=== PATIENT | female | born 1985 | race African-American/Black ===

== ENCOUNTER 2016-09-21 09:49 | Emergency (ER) | payer SELFPAY ==
[~2016-09-21] VITALS: Ht 170.2 cm; Wt 88.5 kg
[~2016-09-21 09:49] MED LIST: DICY20TA30 PO; FAMO20TA5 PO; HYDR-971 PO
[2016-09-21] MEDS ORDERED: ONDANSETRON PF 4 MG/2 ML VIAL. IV ONE (11:15)
[2016-09-21] MEDS ORDERED: FENTANYL PF 100 MCG/2 ML VIAL. IV PRN (11:15)
[2016-09-21 11:18] LABS: NEG OBC UR NEG; POS OBC UR POS
[2016-09-21 11:22] LABS: BILIRUBIN,URINE NEGATIVE (NEG); GLUCOSE,URINE NEGATIVE (NEG); NITRITE,URINE NEGATIVE (NEG); PROTEIN,URINE NEGATIVE (NEG-TRACE); UROBILINOGEN,URINE 0.2 mg/dL (0.2 mg/dL)
[2016-09-21] MEDS ORDERED: IV NORMAL SALINE 1000ML BAG 1,000 ML IV SCH (11:30)
--- NOTE | 2016-09-21 11:34 | RAD ---
Right upper quadrant abdominal ultrasound, 09/21/2016: History: Right upper quadrant pain, vomiting The gallbladder is is not well distended. Its grubbs are at the upper limits of normal in thickness. No gallstones are seen. The gallbladder wall is not thickened. No bile duct dilatation is evident. The visualized portions of the liver, pancreas and right kidney are unremarkable. IMPRESSION: No significant abnormality is detected.
[2016-09-21 11:47] LABS: BACTERIA,URINE FEW /HPF (0-FEW); RBC,URINE RARE /HPF (0-2); SQUAMOUS EPITHELIAL CELL,UR FEW /LPF
[2016-09-21 12:03] LABS: BASO % 0 % (0-3); EOS % 1 % (0-3); HEMATOCRIT 38.3 % (36.0-47.0); HEMOGLOBIN 12.5 g/dL (12.0-15.5); LYMPH # 2.2 x10^3/uL (1.0-4.8); LYMPH % 31 % (24-48); MEAN CORPUSCULAR HEMOGLOBIN 26 pg (25-35); MEAN CORPUSCULAR HGB CONC 33 g/dL (31-37); MEAN CORPUSCULAR VOLUME 78 fL (79-100); MONO % 6 % (0-9); NEUT % 61 % (31-73); PLATELET COUNT 335 x10^3/uL (140-400); RED BLOOD COUNT 4.89 x10^6/uL (3.50-5.40); RED CELL DISTRIBUTION WIDTH 15.1 % (11.5-14.5); WHITE BLOOD COUNT 6.9 x10^3/uL (4.0-11.0)
[2016-09-21 12:06] LABS: CALCIUM 9.6 mg/dL (8.5-10.1); GFR 79.3; POTASSIUM 4.1 mmol/L (3.5-5.1)
[2016-09-21 12:13] LABS: ALBUMIN 3.8 g/dL (3.4-5.0); ALBUMIN/GLOBULIN RATIO 0.8 (1.0-1.7); TOTAL BILIRUBIN 0.3 mg/dL (0.2-1.0); TOTAL PROTEIN 8.6 g/dL (6.4-8.2)
--- NOTE | 2016-09-21 12:16 | PHYS DOC ---
Past Medical History Past Medical History: Anemia Additional Past Medical Histor: ovarian cyst Past Surgical History: Other Additional Past Surgical Histo: R)inguinal hernia. Smoking: Cigar Alcohol Use: Rarely Drug Use: Marijuana Adult General Chief Complaint Chief Complaint: ABDOMINAL PAIN HPI HPI Patient is a 31 year old female who presents with ongoing right upper quadrant pain. She states that it is been worse over the past 3 weeks with frequent nausea and vomiting. She has loose stools without blood. She's had urinary frequency without dysuria or hematuria. She denies any fevers at home. The patient has been seen here previously for similar complaints. She states that she was told that there was something wrong with her gallbladder, but it did not need to be removed emergently. She was instructed to follow-up as an outpatient with a general surgeon. She is waiting for her insurance to be effective after starting a new job in order to be seen by general surgeon. She does not have a PCP. Review of Systems Review of Systems Constitutional: Denies fever or chills. [] Respiratory: Denies cough or shortness of breath. [] Cardiovascular: Denies chest pain, palpitations or edema. [] GI: Denies bloody stools. Reports right upper quadrant abdominal pain, nausea, vomiting, and diarrhea. : Denies dysuria, hematuria. Reports urinary frequency. Musculoskeletal: Denies back pain or joint pain. [] Integument: Denies rash or skin lesions. [] Neurologic: Denies headache, focal weakness or sensory changes. [] All systems reviewed and negative unless otherwise stated in the HPI. Current Medications Current Medications Current Medications Medications (Trade) Dose Ordered Sig/[facility] Start Time Stop Time Status Last Admin Dose Admin Fentanyl Citrate 50 mcg 50 mcg PRN Q15MIN PRN 09/21/16 11:15 09/21/16 13:14 DC 09/21/16 12:18 50 MCG Ondansetron HCl (Zofran) 4 mg 1X ONCE 09/21/16 11:15 09/21/16 11:16 DC 09/21/16 12:16 4 MG Sodium Chloride (Iv Sodium Chloride 0.9% 1000ml Bag) 1,000 ml @ 1,000 mls/hr Q1H 09/21/16 11:30 09/21/16 12:29 DC 09/21/16 12:15 1,000 MLS/HR Allergies Allergies Allergies Coded Allergies Type Severity Reaction Last Updated Verified No Known Medication Allergies Allergy Unknown 06/13/16 Yes lactose Adverse Reaction Intermediate diarrhea-reports lactose intolerance. Yes Physical Exam Physical Exam Constitutional: Well developed, well nourished, no acute distress, non-toxic appearance. [] HENT: Normocephalic, atraumatic, bilateral external ears normal, oropharynx moist, no oral exudates, nose normal. [] Eyes: PERRLA, EOMI, conjunctiva normal, no discharge. [] Neck: Normal range of motion, no tenderness, supple, no stridor. [] Cardiovascular:Heart rate regular rhythm, no murmur [] Lungs & Thorax: Bilateral breath sounds clear to auscultation [] Abdomen: Bowel sounds normal, soft, right upper quadrant tenderness, no masses, no pulsatile masses. [] Skin: Warm, dry, no erythema, no rash. [] Back: No tenderness, no CVA tenderness. [] Extremities: No tenderness, no cyanosis, no clubbing, ROM intact, no edema. [] Neurologic: Alert and oriented X 3, normal motor function, normal sensory function, no focal deficits noted. [] Psychologic: Affect normal, judgement normal, mood normal. [] Current Patient Data Vital Signs Vital Signs Date Time Temp Pulse Resp B/P Pulse Ox O2 Delivery O2 Flow Rate FiO2 09/21/16 13:11 70 16 137/85 99 09/21/16 12:18 Room Air 09/21/16 11:14 98.7 98.7 Lab Values Laboratory Tests Test 09/21/16 10:37 09/21/16 11:41 Urine Collection Type Void Urine Color Yellow Urine Clarity Clear Urine pH 6.0 Urine Specific Grubbs 1.020 Urine Protein Negativemg/dL (NEG-TRACE) Urine Glucose (UA) Negativemg/dL (NEG) Urine Ketones (Stick) Tracemg/dL (NEG) Urine Blood Negative (NEG) Urine Nitrite Negative (NEG) Urine Bilirubin Negative (NEG) Urine Urobilinogen Dipstick 0.2mg/dL (0.2 mg/dL) Urine Leukocyte Esterase Negative (NEG) Urine RBC Rare/HPF (0-2) Urine WBC 1-4/HPF (0-4) Urine Squamous Epithelial Cells Few/LPF Urine Bacteria Few/HPF (0-FEW) Urine Mucus Slight/LPF Urine Test Negative (NEG) White Blood Count 6.9x10^3/uL (4.0-11.0) Red Blood Count 4.89x10^6/uL (3.50-5.40) Hemoglobin 12.5g/dL (12.0-15.5) Hematocrit 38.3% (36.0-47.0) Mean Corpuscular Volume 78fL (79-100) L Mean Corpuscular Hemoglobin 26pg (25-35) Mean Corpuscular Hemoglobin Concent 33g/dL (31-37) Red Cell Distribution Width 15.1% (11.5-14.5) H Platelet Count 335x10^3/uL (140-400) Neutrophils (%) (Auto) 61% (31-73) Lymphocytes (%) (Auto) 31% (24-48) Monocytes (%) (Auto) 6% (0-9) Eosinophils (%) (Auto) 1% (0-3) Basophils (%) (Auto) 0% (0-3) Neutrophils # (Auto) 4.2x10^3uL (1.8-7.7) Lymphocytes # (Auto) 2.2x10^3/uL (1.0-4.8) Monocytes # (Auto) 0.4x10^3/uL (0.0-1.1) Eosinophils # (Auto) 0.1x10^3/uL (0.0-0.7) Basophils # (Auto) 0.0x10^3/uL (0.0-0.2) Sodium Level 139mmol/L (136-145) Potassium Level 4.1mmol/L (3.5-5.1) Chloride Level 104mmol/L (98-107) Carbon Dioxide Level 26mmol/L (21-32) Anion Gap 9 (6-14) Blood Urea Nitrogen 11mg/dL (7-20) Creatinine 1.0mg/dL (0.6-1.0) Estimated GFR (Cockcroft-Gault) 79.3 BUN/Creatinine Ratio 11 (6-20) Glucose Level 93mg/dL (70-99) Calcium Level 9.6mg/dL (8.5-10.1) Total Bilirubin 0.3mg/dL (0.2-1.0) Aspartate Amino Transferase (AST) 16U/L (15-37) Alanine Aminotransferase (ALT) 20U/L (14-59) Alkaline Phosphatase 54U/L (46-116) Total Protein 8.6g/dL (6.4-8.2) H Albumin 3.8g/dL (3.4-5.0) Albumin/Globulin Ratio 0.8 (1.0-1.7) L Lipase 124U/L (73-393) Laboratory Tests 09/21/16 11:41 Laboratory Tests 09/21/16 11:41 EKG EKG [] Radiology/Procedures Radiology/Procedures REASON: ruq pain, n/v PROCEDURE: ABDOMEN LTD Right upper quadrant abdominal ultrasound, 09/21/2016: History: Right upper quadrant pain, vomiting The gallbladder is is not well distended. Its grubbs are at the upper limits of normal in thickness. No gallstones are seen. The gallbladder wall is not thickened. No bile duct dilatation is evident. The visualized portions of the liver, pancreas and right kidney are unremarkable. IMPRESSION: No significant abnormality is detected. Course & Med Decision Making Course & Med Decision Making Pertinent Labs and Imaging studies reviewed. (See chart for details) Patient presents with ongoing right upper quadrant pain with nausea, vomiting, and diarrhea. On exam, her abdomen is soft and nonsurgical with tenderness in the right upper quadrant. Ultrasound does not show signs of cholecystitis, gallstones, or ductal dilation. There are no significant laboratory abnormalities. The patient's pain and nausea improved with fentanyl and Zofran. I discussed the results with patient. She is again instructed to follow up with general surgery, as there are no indications for emergent cholecystectomy at this time. She is discharged home with prescription for Zofran and Manor. Return precautions were discussed. She verbalizes understanding and agrees with plan. Dragon Disclaimer Dragon Disclaimer This electronic medical record was generated, in whole or in part, using a voice recognition dictation system. Departure Departure Impression: Primary Impression: Abdominal pain Additional Impression: Biliary colic Disposition: 01 HOME, SELF-CARE Condition: IMPROVED Referrals: MATHEW HAYES MD Patient Instructions: Abdominal Pain, [id number], Biliary Colic Additional Instructions: Your labs and ultrasound did not show any concerning findings today. Please take the prescribed medications as directed. Do not drive or operate heavy machinery while taking pain medication. Please follow-up with the general surgeon listed below regarding your gallbladder. Return to the emergency department if you have severe pain, continued vomiting, fever, or other new or concerning symptoms. Scripts Hydrocodone/Apap 5-325 (Manor 5-325 Tablet)1 Each Tablet1 Tab PO PRN Q6HRS PRN PAIN #20 TAB Prov:REY LLAMAS 09/21/16 Ondansetron (Zofran Odt)4 Mg Tab.rapdis1 Tab SL Q8HRS #10 TAB Prov:REY LLAMAS 09/21/16 Problem Qualifiers Primary Impression: Abdominal pain Abdominal location: right upper quadrant Qualified Code: R10.11 - Right upper quadrant pain REY LLAMAS Sep 21, 2016 12:16
[2016-09-21] MEDS ORDERED: ONDA4TAB10 SL (12:54)
[2016-09-21] MEDS ORDERED: HYDR-971 PO (12:54)
[2016-09-21 13:11] VITALS: BP 137/85
== END 2016-09-21 13:14 | disposition home or self-care (01) ==
LOC: ER 09:49
DX: K80.50 Calculus of bile duct without cholangitis or cholecystitis without obstruction (principal); F12.10 Cannabis abuse, uncomplicated; F17.210 Nicotine dependence, cigarettes, uncomplicated; Z98.890 Other specified postprocedural states; Z91.011 Allergy to milk products
CPT/HCPCS: 36415; 76705; 80053; 81001; 81025; 83690; 85027; 96361; 96374; 96375; 99285; J2405; J3010; J7030

== ENCOUNTER → 2016-11-01 | Outpatient (CLI) | payer OTHER ==
[~2016-11-01] MED LIST changes: +ONDA4TAB10 SL; +SINCALIDE 2.1 MCG in IV NORMAL SALINE 50ML 30 ML IV ONE
--- NOTE | 2016-11-01 11:08 | RAD ---
EXAM: Nuclear hepatobiliary scan with ejection fraction. HISTORY: Abdominal pain/nausea. TECHNIQUE: Serial static images are obtained of the liver and biliary system in a frontal projection following IV administration of 5.5 mCi of technetium-99m Choletec. After filling of the gallbladder, 2.1 mcg of sincalide were infused over 30 minutes and dynamic imaging continued over this period. The gallbladder ejection fraction was calculated. FINDINGS: There is prompt hepatic clearance of tracer from the blood pool. There is homogeneous distribution throughout the liver. There is normal filling of the gallbladder and normal emptying into the biliary system and small bowel. The gallbladder ejection fraction is 94.3% (normal >35%). IMPRESSION: 1. Normal gallbladder ejection fraction.
== END | disposition home or self-care (01) ==
LOC: NM 08:10
PROVIDERS: ATTEND Surgery
DX: R10.11 Right upper quadrant pain (principal)
CPT/HCPCS: 78226; 96374; 96375; A9537; J2805

== ENCOUNTER 2016-11-22 06:41 | Day surgery (SDC) | payer OTHER ==
[~2016-11-22] VITALS: Ht 170.2 cm; Wt 104.8 kg
[~2016-11-22 06:41] MED LIST changes: +CEFAZOLIN 2GM PREMIX 50 ML IV PRN; -SINCALIDE 2.1 MCG in IV NORMAL SALINE 50ML 30 ML IV ONE
[2016-11-22] MEDS ORDERED: IV RINGERS,LACTATED 1000ML 1,000 ML IV SCH (07:00)
[2016-11-22] MEDS ORDERED: PROCHLORPERAZINE 10 MG/2 ML VIAL. IV PRN (07:00)
[2016-11-22] MEDS ORDERED: FENTANYL PF 100 MCG/2 ML VIAL. IV PRN (07:00)
[2016-11-22] MEDS ORDERED: LIDOCAINE 1% 1 ML SYRINGE. ID PRN (07:00)
[2016-11-22] MEDS ORDERED: MORPHINE SULFATE 2 MG/ML DISP.SYRIN. IV PRN (07:00)
[2016-11-22] MEDS ORDERED: ONDANSETRON PF 4 MG/2 ML VIAL. IV PRN (07:00)
[2016-11-22] MEDS ORDERED: HYDROMORPHONE 2 MG/ML VIAL. IV PRN (07:00)
[2016-11-22] MEDS ORDERED: FERR-26 PO (07:05)
[2016-11-22] MEDS ORDERED: NORG1TAB34 PO (07:07)
[2016-11-22] MEDS ORDERED: MULT1TAB52 PO (07:07)
[2016-11-22] MEDS ORDERED: SURGICEL HEMOSTAT 4X8 EACH. ONE (07:14)
[2016-11-22] MEDS ORDERED: IOHEXOL 300 MG/ML 50 ML VIAL. ONE (07:14)
[2016-11-22] MEDS ORDERED: BUPIVACAINE-EPI 0.25%-1:200000 MPF 30 ML VIAL. ONE (07:14)
[2016-11-22 07:27] LABS: NEG OBC UR NEG; POS OBC UR POS
[2016-11-22] MEDS ORDERED: LIDOCAINE 2% 100 MG/5 ML DISP.SYRIN. ONE (07:33)
[2016-11-22] MEDS ORDERED: PROPOFOL 20 ML IV ONE (07:33)
[2016-11-22] MEDS ORDERED: ROCURONIUM 50 MG/5 ML VIAL. ONE (07:33)
[2016-11-22] MEDS ORDERED: ONDANSETRON PF 4 MG/2 ML VIAL. ONE (07:33)
[2016-11-22] MEDS ORDERED: FENTANYL PF 100 MCG/2 ML VIAL. ONE ×4 (07:33→10:32)
[2016-11-22] MEDS ORDERED: DEXAMETHASONE SOD PHOS 20 MG/5 ML VIAL. ONE (07:33)
[2016-11-22] MEDS ORDERED: MIDAZOLAM HCL/PF 2 MG/2 ML VIAL. ONE (07:33)
[2016-11-22] MEDS ORDERED: SUCCINYLCHOLINE 200 MG/10 ML VIAL. ONE (08:14)
[2016-11-22] MEDS ORDERED: OXYC-323 PO (08:21)
[2016-11-22] MEDS ORDERED: ONDA4TAB7 PO (08:21)
[2016-11-22] MEDS ORDERED: BUPIVAC MPF-EPI 0.5%-1:200000 30 ML VIAL. ONE (08:22)
[2016-11-22] MEDS ORDERED: ACETAMINOPHEN INTRAVENOUS 100 ML IV ONE ×2 (08:41→09:00)
[2016-11-22] MEDS ORDERED: GLYCOPYRROLATE 1 MG/5 ML VIAL. ONE (09:00)
[2016-11-22] MEDS ORDERED: KETOROLAC 60 MG/2 ML INJ FOR OR. ONE (09:00)
[2016-11-22] MEDS ORDERED: NEOSTIGMINE METHYLSULFATE 5 MG/5 ML SYRINGE. ONE (09:00)
--- NOTE | 2016-11-22 09:05 | RAD ---
EXAM: Intraoperative cholangiogram. HISTORY: Cholecystectomy. COMPARISON: 11/01/2016. FINDINGS: 2 fluoroscopic images of the right upper quadrant are obtained. The images demonstrate contrast opacification of the downstream biliary tree and proximal duodenum. There is no filling defect to suggest a retained stone. No strictures seen. The total fluoroscopy time is 12 seconds. IMPRESSION: Intraoperative cholangiogram without evidence of a retained stone or stricture.
[2016-11-22] MEDS: FENTANYL PF 100 MCG/2 ML VIAL. IV PRN ×3 (09:37→10:35)
[2016-11-22] MEDS ORDERED: OXYCODONE/APAP 5/325 TABLET. PO ONE ×2 (09:45)
--- NOTE | 2016-11-22 09:51 | PDOC ---
BRIEF OPERATIVE NOTE Pre-Op Diagnosis biliary dyskinesia Post-Op Diagnosis same Procedure Performed lap jaylyn, ioc Surgeon dennis dowell Anesthesia Type: General Blood Loss 20 IV Fluid 800 Specimens Obtained gb Complications 0 GAGAN DOWELL MD Nov 22, 2016 09:51
[2016-11-22 11:02] VITALS: BP 123/64
--- NOTE | 2016-11-22 12:20 | OP ---
DATE OF SURGERY: 11/22/2016 PREOPERATIVE DIAGNOSIS: Biliary dyskinesia. POSTOPERATIVE DIAGNOSIS: Biliary dyskinesia. PROCEDURE: Laparoscopic cholecystectomy with intraoperative cholangiogram. SURGEON: Courtney Dowell M.D. ANESTHESIA: General. ESTIMATED BLOOD LOSS: 20 mL. INTRAVENOUS FLUIDS: 800 mL. INDICATIONS: The patient is a very pleasant 31-year-old female with symptoms consistent of biliary colic. Ultrasound was negative for gallstones. FINDINGS: Intraoperative cholangiogram is normal. PROCEDURE IN DETAIL: After informed consent was obtained, the patient was taken to the operating room and placed in supine position. After adequate induction of general anesthesia, she was prepped and draped in usual sterile fashion. An umbilical skin incision was made with a scalpel, subcutaneous tissues with a hemostat. [facility] was used to grab the fascia and lift it anteriorly. Veress was used to gain access to the peritoneal cavity. Low opening pressures confirmed intraperitoneal placement of Veress. Pneumoperitoneum to 15 mmHg was established followed by placement of 5 mm port. A 5 mm 30 degree lens was inserted, which revealed good port placement. No evidence of entry trauma. She was placed head up, rotated towards her left. Three additional ports were placed under direct vision, one was a 12 mm epigastric port and two were 5 mm right lateral ports. The fundus of the gallbladder was retracted over liver and slightly towards the right. Infundibulum was retracted towards the right and towards her toes to open triangle of Calot. At the level of the infundibulum, the leading peritoneal edge was scored with cautery medially and laterally and carried back towards the liver. [place] dissector was used to dissect out the triangle of Calot. At the completion of dissection, she had an anterior and posterior branch of the cystic artery leading directly to the gallbladder and then the cystic duct leading directly to the gallbladder. The gallbladder had dissected away from the cystic plate. The liver could be seen behind the gallbladder. There was no other extraneous tissue noted and the base of the gallbladder was free of undissected tissue. Two clips were placed on cystic artery, anterior branch and 2 clips were placed in cystic artery, posterior branch proximally and then a clip was placed on the cystic duct adjacent to the gallbladder. Ductotomy was made with scissors. Intraoperative cholangiogram showed free flow of contrast. The cystic duct, common bile duct, common hepatic, left and right hepatics, intrahepatic radicles, free flow of contrast into the duodenum with no filling defects noted. The catheter was removed and the cholangiogram was interpreted as normal. The cystic artery was transected sharply. Three clips were placed on cystic duct distal to the ductotomy. Ductotomy completed with scissors. The gallbladder was removed from bed of the liver with cautery and placed in laparoscopic bag and brought out through the epigastric incision. The right upper quadrant was irrigated. Irrigant returned clear. No bleeding or bile leakage noted. Fascial closure device was used to close the fascia at the epigastric incision using 0 Vicryl suture. Ports removed under direct vision. They were hemostatic. Pneumoperitoneum was desufflated. Skin incisions were closed with 4-0 Monocryl in subcuticular fashion. Sterile dressings were placed. She tolerated the procedure well. There were no apparent complications. She was then transferred in stable condition to the recovery room. COURTNEY DOWELL MD DR: MANISHA/devi JOB#: [id number] / [id number]
--- NOTE | 2016-11-23 14:03 | PATHOLOGY ---
PATHOLOGY REPORT * * * * * * * * FINAL DIAGNOSIS: Gallbladder, cholecystectomy: - Chronic cholecystitis, mild. (SKM:cailin; d/t: 11/23/2016) REPORT ELECTRONICALLY SIGNED BY: Sandy Clark M.D. DATE/TIME: 11/23/2016 14:02 * * * * * * * * GROSS PATHOLOGY: Received in formalin labeled "Carmen Thomas - gallbladder and contents," is a 7.9 x 2.8 x 2.5 cm, intact gallbladder with rios, well vascularized, and wrinkled serosal surfaces. Opening the gallbladder reveals dark green and velvety mucosa and an average wall thickness of 0.2 cm. Calculi are not present and no masses are noted grossly. [employer] sections from the body and fundus are submitted along with the proximal margin in cassette A1. (TTL; 11/22/2016) INITIAL CPT CODE(S): A; 28932 Professional services performed [place] [facility] [place] [address] Technical services performed by [facility] at [address] [place] [address]. SPECIMEN(S) RECEIVED: A.Gallbladder and contents CLINICAL HISTORY: Biliary dyskinesia PATIENT: CARMEN THOMAS /AGE: 10 1985 (Age: 31) PATIENT #: [id number] ALT CASE #: SPECIMEN COLLECTION DATE: 11/22/2016 SPECIMEN RECEIVED DATE: 11/22/2016 [facility] - [address] [place] [address] - PHONE: [phone] * * * END OF REPORT * * *
== END 2016-11-22 11:28 ==
LOC: SURG 06:41
PROVIDERS: ATTEND Surgery
DX: K81.1 Chronic cholecystitis (principal); Z83.3 Family history of diabetes mellitus; Z82.5 Family history of asthma and other chronic lower respiratory diseases; F17.210 Nicotine dependence, cigarettes, uncomplicated; Z72.89 Other problems related to lifestyle
CPT/HCPCS: 47563; 74300; 81025; 88304; C1782; J0131; J0330; J0690; J1100; J1885; J2250; J2270; J2405; J2704; J2710; J3010; J3490; J7030; J7120; Q9967; J0780

== ENCOUNTER 2017-01-03 03:21 | Emergency (ER) | payer OTHER ==
[~2017-01-03] VITALS: Ht 170.2 cm; Wt 99.8 kg
[~2017-01-03 03:21] MED LIST changes: -CEFAZOLIN 2GM PREMIX 50 ML IV PRN; +FERR-26 PO; +MULT1TAB52 PO; +NORG1TAB34 PO; +ONDA4TAB7 PO; +OXYC-323 PO
--- NOTE | 2017-01-03 04:41 | PHYS DOC ---
Past Medical History Past Medical History: Anemia Additional Past Medical Histor: ovarian cyst Past Surgical History: Other Additional Past Surgical Histo: R)inguinal hernia. Alcohol Use: Rarely Drug Use: Marijuana Adult General Chief Complaint Chief Complaint: SUICDAL IDEATION HPI HPI Patient is a 31 year old female who presents here today secondary to suicidal ideation. Patient reports that she does have a history of hypertension. Patient is 7 para 4. Patient reports that she found out she was one week ago. Patient's last menstrual period was approximately November 17 which was roughly when she had her cholecystectomy done. Patient appears to be extremely depressed regarding financial issues. Patient reports that she stressed over not having a job. Patient reports that she had to give up her job that she had right before she had her surgery because she didn't have enough time for the job to hold her spot d after surgery but she was having too much pain and reports that the surgery was essential. Patient reports that she is very depressed about not having money to take care of her children. Patient reports that she feels despondent over not having a job being able to care for her children currently and now that she is she feels extremely depressed and feels like she is a black old. Patient denies any fevers shakes chills nausea vomiting diarrhea. Patient reports some URI symptoms. Patient denies any dysuria frequency urgency. Patient denies any vaginal bleeding. Patient denies any headaches. Patient reports earlier today she went and tried to drown herself in a tub but she said that was too difficult. Patient reports that she drove her car into a parking garage at the hotel that she stay net and sat in her car while running for about 30 minutes. Patient doesn't change her mind turn off the car and came to the hospital for assistance. Patient's physical exam was unremarkable here in the ER. Patient's alert awake oriented 3. Patient's heart was regular rate and rhythm. Lungs were clear. Abdomen was soft nontender no rebound or guarding. Assessment and plan. This is a 31-year-old female who presents here today with depression/suicidal ideation and a suicidal attempt with a plan to drown herself tub or to sit in her car while was running. Fortunately for the patient the car was parked in a "garage and the likelihood of carbon monoxide poisoning would be slim to 0. Patient's clinically hemodynamically stable. We will ask our psychiatric assessment team to evaluate her. Patient reports that she does have 4 other children however there were all within the father at this time. Patient reports nobody in her family knows that she is staying in a hotel room and that she is by herself at this time. Review of Systems Review of Systems Constitutional: Denies fever or chills [] Eyes: Denies change in visual acuity, redness, or eye pain [] HENT: Denies nasal congestion or sore throat [] All other review systems are negative except as documented in the history of present illness portion. Allergies Allergies Allergies Coded Allergies Type Severity Reaction Last Updated Verified No Known Medication Allergies Allergy Unknown 11/22/16 Yes lactose Adverse Reaction Intermediate diarrhea-reports lactose intolerance. Yes Physical Exam Physical Exam Constitutional: Well developed, well nourished, no acute distress, non-toxic appearance. [] HENT: Normocephalic, atraumatic, bilateral external ears normal, oropharynx moist, no oral exudates, nose normal. [] Eyes: PERRLA, EOMI, conjunctiva normal, no discharge. [] Neck: Normal range of motion, no tenderness, supple, no stridor. [] Cardiovascular:Heart rate regular rhythm, no murmur [] Lungs & Thorax: Bilateral breath sounds clear to auscultation [] Abdomen: Bowel sounds normal, soft, no tenderness, no masses, no pulsatile masses. [] Skin: Warm, dry, no erythema, no rash. [] Back: No tenderness, no CVA tenderness. [] Extremities: No tenderness, no cyanosis, no clubbing, ROM intact, no edema. [] Neurologic: Alert and oriented X 3, normal motor function, normal sensory function, no focal deficits noted. [] Psychologic: tearful. Current Patient Data Vital Signs Vital Signs Date Time Temp Pulse Resp B/P (MAP) Pulse Ox O2 Delivery O2 Flow Rate FiO2 01/03/17 06:15 81 18 130/79 (96) 98 Room Air 01/03/17 03:21 98.3 98.3 Lab Values Laboratory Tests Test 01/03/17 03:04 POC Urine HCG, Qualitative Hcg positive (Negative) EKG EKG [] Radiology/Procedures Radiology/Procedures [] Course & Med Decision Making Course & Med Decision Making Pertinent Labs and Imaging studies reviewed. (See chart for details) [] Dragon Disclaimer Dragon Disclaimer This electronic medical record was generated, in whole or in part, using a voice recognition dictation system. Departure Departure Impression: Primary Impression: Depression Additional Impressions: Suicidal ideation Suicide attempt Condition: STABLE Referrals: NO PCP (PCP) Patient Instructions: ABCs of , Depression, Adult, No-harm Safety Contract Problem Qualifiers SCARLETT CALLAHAN MD January 03, 2017 04:41
--- NOTE | 2017-01-03 05:41 | ACF ---
Admission Forms Criteria PSYCHIATRIC DISORDERS Clinical Indications for Inpatient Care (Place 'X' for any and all applicable criteria): Ongoing inpatient care may be needed for ANY ONE of the following(1)(2)(3)(4)(6) (7)(8): [ ]I. Danger to self or others not manageable at lower level of care. [ ]II. Grave disability (eg, inability to perform self care necessary at lower level of care) [ ]III. Agitation or inappropriate behavior interfering with care for primary condition (eg, attempting to discontinue lines or drains prematurely, unable to cooperate with respiratory care) [ ]IV. Severe disability or disorder indicated by ALL of the following: [ ]a) Severe behavioral health disorder-related symptoms or condition indicated by ANY ONE of the following: [ ]i) Severe problem with cognition, memory, judgment, or impulse control [ ]ii) Severe clinical manifestations (eg, hallucinations, delusions, other acute psychotic symptoms, phani, extreme agitation or anxiety) [ ]b) Patient management at lower level of care is not feasible until acute intervention or modification is initiated. Extended stay beyond goal length of stay for the primary condition may be indicated when ANY ONE of the following is present: (1)(2)(3)(4): [ ]a) Patient is a danger to self or others and not manageable at lower level of care. [ ]b) Behavior crisis management, including physical or chemical restraints, is required and is not available at a lower level of care. [ ]c) Behavioral symptoms (e.g., agitation, somnolence, inappropriate behavior) are present, and are not manageable at a lower level of care. [ ]d) Patient cannot understand follow-up treatment and crisis plan. [ ]e) Provider and supports are not sufficiently available at lower level of care. [ ]f) Patient cannot participate (e.g., verify absence of plan for harm) and is in needed of monitoring. The original [employer] content created by [employer] has been revised. The portions of the content which have been revised are identified through the use of italic text or in bold, and [facility] has neither reviewed nor approved the modified material. All other unmodified content is copyright [employer] [employer]. Please see references footnoted in the original [employer] edition 2016 Admission Criteria Met?: Pending UMANG THAO January 03, 2017 05:41
[2017-01-03 06:15] VITALS: BP 130/79
== END 2017-01-03 06:15 | disposition home or self-care (01) ==
LOC: ER 03:21
DX: O99.341 Other mental disorders complicating pregnancy, first trimester (principal); R45.851 Suicidal ideations; F32.9 Major depressive disorder, single episode, unspecified; F12.10 Cannabis abuse, uncomplicated; Z91.011 Allergy to milk products; Z3A.01 Less than 8 weeks gestation of pregnancy
CPT/HCPCS: 81025; 84703; 99282

== ENCOUNTER 2017-04-23 18:40 | Observation (INO) | payer OTHER ==
[2017-04-23] MEDS ORDERED: IV RINGERS,LACTATED 1000ML 1,000 ML IV SCH (19:04)
[2017-04-23] MEDS ORDERED: ONDANSETRON PF 4 MG/2 ML VIAL. IV PRN (19:15)
[2017-04-23 20:09] LABS: BILIRUBIN,URINE NEGATIVE (NEG); GLUCOSE,URINE NEGATIVE (NEG); NITRITE,URINE NEGATIVE (NEG); PH,URINE 6.5; PROTEIN,URINE NEGATIVE (NEG-TRACE); UROBILINOGEN,URINE 0.2 mg/dL (0.2 mg/dL)
[2017-04-23 20:12] LABS: BACTERIA,URINE MANY /HPF (0-FEW); RBC,URINE 0 /HPF (0-2); SQUAMOUS EPITHELIAL CELL,UR MOD /LPF
[2017-04-23 20:13] LABS: BARBITURATES NEG (NEG); BENZODIAZEPINES NEG (NEG); CANNABINOIDS POS (NEG); COCAINE NEG (NEG); METHADONE NEG (NEG); OPIATES NEG (NEG); PHENCYCLIDINE NEG (NEG)
[2017-04-23] MEDS ORDERED: diphenhydrAMINE HCL 25 MG CAPSULE PO ONE ×2 (20:15→20:45)
[2017-04-23] MEDS ORDERED: ACETAMINOPHEN 500 MG TABLET PO ONE ×2 (20:15→20:46)
[2017-04-23] MEDS ORDERED: ZOLPIDEM 5 MG TABLET. PO PRN (20:15)
[2017-04-23 22:56] LABS: BASO % 0 % (0-3); EOS % 1 % (0-3); HEMATOCRIT 31.6 % (36.0-47.0); HEMOGLOBIN 10.2 g/dL (12.0-15.5); LYMPH # 2.1 x10^3/uL (1.0-4.8); LYMPH % 29 % (24-48); MEAN CORPUSCULAR HEMOGLOBIN 26 pg (25-35); MEAN CORPUSCULAR HGB CONC 32 g/dL (31-37); MEAN CORPUSCULAR VOLUME 81 fL (79-100); MONO % 6 % (0-9); NEUT % 63 % (31-73); PLATELET COUNT 259 x10^3/uL (140-400); RED BLOOD COUNT 3.91 x10^6/uL (3.50-5.40); RED CELL DISTRIBUTION WIDTH 14.7 % (11.5-14.5); WHITE BLOOD COUNT 7.1 x10^3/uL (4.0-11.0)
[2017-04-23 23:29] LABS: ALBUMIN 2.6 g/dL (3.4-5.0); ALBUMIN/GLOBULIN RATIO 0.6 (1.0-1.7); CALCIUM 8.6 mg/dL (8.5-10.1); GFR 79.3; POTASSIUM 3.2 mmol/L (3.5-5.1); TOTAL BILIRUBIN 0.2 mg/dL (0.2-1.0); TOTAL PROTEIN 6.9 g/dL (6.4-8.2)
[2017-04-24] MEDS ORDERED: ACETAMINOPHEN 500 MG TABLET PO ONE ×2 (10:00→10:13)
== END 2017-04-24 11:05 | disposition home or self-care (01) ==
LOC: 3 SO LND 18:40
PROVIDERS: ADMIT Specialist; ATTEND Specialist
DX: O26.892 Other specified pregnancy related conditions, second trimester (principal); R10.11 Right upper quadrant pain; R19.7 Diarrhea, unspecified; Z3A.21 21 weeks gestation of pregnancy
CPT/HCPCS: 36415; 80053; 80307; 81001; 82150; 83690; 85025; 87045; 87086; 87324; 87328; G0378; G0379; Q0163; G0479

== ENCOUNTER 2017-07-25 13:33 | Observation (INO) | payer OTHER | END 2017-07-25 15:30 | disposition home or self-care (01) | LOC: 3 SO LND 13:33 | PROVIDERS: ADMIT Specialist; ATTEND Specialist | DX: O62.9 Abnormality of forces of labor, unspecified (principal); Z3A.35 35 weeks gestation of pregnancy | CPT/HCPCS: G0378; G0379 ==

== ENCOUNTER 2017-08-03 22:22 | Observation (INO) | payer OTHER ==
[2017-08-03] MEDS ORDERED: IV RINGERS,LACTATED 1000ML 1,000 ML IV SCH (22:33)
[2017-08-03] MEDS ORDERED: ONDANSETRON PF 4 MG/2 ML VIAL. IV PRN (22:45)
[2017-08-03 22:48] LABS: BILIRUBIN,URINE NEGATIVE (NEG); GLUCOSE,URINE NEGATIVE (NEG); NITRITE,URINE NEGATIVE (NEG); PH,URINE 6.5; PROTEIN,URINE NEGATIVE (NEG-TRACE); UROBILINOGEN,URINE 0.2 mg/dL (0.2 mg/dL)
[2017-08-03 22:52] LABS: BACTERIA,URINE MODERATE /HPF (0-FEW); RBC,URINE 0 /HPF (0-2); SQUAMOUS EPITHELIAL CELL,UR MOD /LPF; WBC,URINE OCC /HPF (0-4)
[2017-08-03 22:55] LABS: BARBITURATES NEG (NEG); BENZODIAZEPINES NEG (NEG); CANNABINOIDS NEG (NEG); COCAINE NEG (NEG); METHADONE NEG (NEG); OPIATES NEG (NEG); PHENCYCLIDINE NEG (NEG)
== END 2017-08-04 00:45 | disposition home or self-care (01) ==
LOC: 3 SO LND 22:22
PROVIDERS: ADMIT Specialist; ATTEND Specialist
DX: O26.893 Other specified pregnancy related conditions, third trimester (principal); R42 Dizziness and giddiness; Z3A.36 36 weeks gestation of pregnancy
CPT/HCPCS: 80307; 81001; 87086; G0378; G0379; G0479

== ENCOUNTER 2019-02-13 17:40 | Emergency (ER) | payer SELFPAY ==
[~2019-02-13] VITALS: Ht 170.2 cm; Wt 99.8 kg
[~2019-02-13 17:40] MED LIST changes: +CALC300T5 PO; +FAMO40TA57 PO; -FERR-26 PO; +FERR325T14 PO; +HYDR-3164 PO; -HYDR-971 PO; +NAPR-683 PO; -OXYC-323 PO; +OXYC1TAB15 PO
[2019-02-13] MEDS ORDERED: LIDOCAINE WITH 8.4% SOD BICARB 3 ML DISP.SYRIN. INJ ONE (18:30)
[2019-02-13] MEDS ORDERED: HYDROcodone/APAP 5/325MG 1 TAB TABLET PO ONE (18:30)
[2019-02-13] MEDS ORDERED: SULF1TAB24 PO (18:36)
--- NOTE | 2019-02-13 18:37 | PHYS DOC ---
Past Medical History Past Medical History: Anemia, Other Additional Past Medical Histor: ovarian cyst (LAURIE KOWALSKI APRN) Past Surgical History: Other Additional Past Surgical Histo: R)inguinal hernia. (LAURIE KOWALSKI APRN) Additional Information: SMOKES 2 BLACK & MILDS A DAY Alcohol Use: Rarely Drug Use: Marijuana (LAURIE KOWALSKI APRN) Adult General Chief Complaint Chief Complaint: OTHER COMPLAINTS HPI HPI Patient is a 33 year old female who presents with an abscess on the right lower lip, she states 2 weeks ago she developed herpes infection on the right lower lip, she states she used Abreva but in the last 1 week she's noted increased swelling on the right lower lip. Denies any fever. (LAURIE KOWALSKI APRN) Review of Systems Review of Systems Constitutional: Denies fever or chills [] Musculoskeletal: Denies back pain or joint pain [] Integument: Reports right lower lip abscess Neurologic: Denies headache, focal weakness or sensory changes [] All other systems were reviewed and found to be within normal limits, except as documented in this note. (LAURIE KOWALSKI APRN) Current Medications Current Medications Current Medications Medications (Trade) Dose Ordered Sig/Rut Start Time Stop Time Status Last Admin Dose Admin Acetaminophen/ Hydrocodone Bitart (Lortab 5/325) 2 tab 1X ONCE 02/13/19 18:30 02/13/19 18:31 DC 02/13/19 18:20 2 TAB Lidocaine/Sodium Bicarbonate (Buffered Lidocaine 1%) 3 ml 1X ONCE 02/13/19 18:30 02/13/19 18:31 DC 02/13/19 18:20 3 ML (GELY JOHNSON MD) Allergies Allergies Allergies Coded Allergies Type Severity Reaction Last Updated Verified No Known Medication Allergies Allergy Unknown 08/24/17 Yes lactose Adverse Reaction Intermediate diarrhea-reports lactose intolerance. 08/24/17 Yes (GELY JOHNSON MD) Physical Exam Physical Exam Constitutional: Well developed, well nourished, no acute distress, non-toxic appearance. [] Skin: Warm, dry, right lower lip on the corner with an indurated area approximately 2 x 1 cm consistent with an abscess. There is fluctuance to the area, there is yellowness to the area. There is trace erythema. Braces noted on the upper and lower teeth Back: No tenderness, no CVA tenderness. [] Extremities: No tenderness, no cyanosis, no clubbing, ROM intact, no edema. [] Neurologic: Alert and oriented X 3, normal motor function, normal sensory function, no focal deficits noted. [] Psychologic: Affect normal, judgement normal, mood normal. [] (LAURIE KOWALSKI APRN) Current Patient Data Vital Signs Vital Signs Date Time Temp Pulse Resp B/P (MAP) Pulse Ox O2 Delivery O2 Flow Rate FiO2 02/13/19 18:20 18 96 Room Air 02/13/19 17:55 98.5 102 178/110 (132) 98.5 (GELY JOHNSON MD) EKG EKG [] (LAURIE KOWALSKI APRN) Radiology/Procedures Radiology/Procedures Indication: abscess right lower lip Procedure: The patient was positioned appropriately. Local anesthesia was 1% buffered lidocaine. 2 tiny incisions were then made over the apex of the lesion which was the inner lip with an 11 and mild amount of bloody yellow material was expressed. The drainage cavity was irrigated and covered with sterile gauze. The patients tetanus status updated as needed. The patient tolerated the procedure well. Complications: none.[] (LAURIE KOWALSKI APRN) Course & Med Decision Making Course & Med Decision Making Pertinent Labs and Imaging studies reviewed. (See chart for details) Patient has an abscess on the right lower lip that began as a herpes labialis infection. Abscess was drained by me as noted in procedures. Tetanus up-to-date. Discharged on Bactrim. Wound care instructions and return precautions provided. (LAURIE KOWALSKI APRN) Course & Med Decision Making Staff Physician Addendum: I was working in the ER during the course of this patient's visit. I was available for consultation as needed, but I was not directly involved in the care of this patient. (GELY JOHNSON MD) Dragon Disclaimer Dragon Disclaimer This electronic medical record was generated, in whole or in part, using a voice recognition dictation system. (LAURIE KOWALSKI APRN) Departure Departure Impression: Primary Impression: Abscess, lip Disposition: 01 HOME, SELF-CARE Condition: STABLE Referrals: MASSIEL SPENCER MD (PCP) LINNETTE HAYES MD follow up in 1-2 weeks with your doctor Patient Instructions: Abscess, Care After Additional Instructions: You have an abscess on your lip that was drained in the emergency room. Keep the area clean and dry. As discussed you can wash the area with warm salted water. Complete your antibiotics Scripts Sulfamethoxazole/Trimethoprim (BACTRIM DS TABLET) 1 Each Tablet 1 TAB PO BID, #20 TAB Prov: LAURIE KOWALSKI APRN 02/13/19 LAURIE KOWALSKI APRN Feb 13, 2019 18:37 GELY JOHNSON MD Feb 13, 2019 18:45
[2019-02-13 18:45] VITALS: BP 153/88
== END 2019-02-13 18:45 | disposition home or self-care (01) ==
LOC: ER 17:40
DX: K13.0 Diseases of lips (principal); F17.210 Nicotine dependence, cigarettes, uncomplicated; Z91.011 Allergy to milk products
CPT/HCPCS: 10060; 99283

== ENCOUNTER 2021-04-01 23:42 | Emergency (ER) | payer SELFPAY ==
[~2021-04-01] VITALS: Ht 170.2 cm; Wt 104.5 kg
[~2021-04-01 23:42] MED LIST changes: +MULT-445 PO; -MULT1TAB52 PO; -NORG1TAB34 PO; +NORG1TAB70 PO; +SULF1TAB24 PO
[2021-04-02] MEDS ORDERED: ACETAMINOPHEN 500 MG TABLET PO ONE
--- NOTE | 2021-04-02 00:03 | PHYS DOC ---
Past Medical History Past Medical History: Anemia, Other Additional Past Medical Histor: ovarian cyst Past Surgical History: Other Additional Past Surgical Histo: R)inguinal hernia. Smoking Status: Current Every Day Smoker Alcohol Use: Rarely Drug Use: Marijuana General Adult EDM: Chief Complaint: CHEST PAIN Problems: (1) Chest pain HPI: HPI: 35-year-old female presents to the emergency department complaining of chest pain shortness of breath, fatigue for the last several days. She was last seen at [facility] 30 minutes prior to arrival in our emergency department and had an EKG and other diagnostics performed, she states that there was a lot of people in that emergency department and she wanted more individualized attention so she came here. She denies any further complaints. The patient denies nausea, vomiting, fever, chills, recent trauma, or any other complaints. She is unvaccinated for COVID-19 Review of Systems: Review of Systems: Constitutional: Denies fever or chills. Eyes: Denies change in vision, pain. HENT: Denies congestion or sore throat. GI: Denies abdominal pain, nausea. : Denies change in urination, dysuria. Musculoskeletal: Denies extremity pain, or trauma. Skin: Denies rash, skin change. Neurologic: Denies headache, focal weakness. Psychiatric: Denies depression or anxiety. All other systems reviewed as negative except for what was mentioned in the HPI. Heart Score: C/O Chest Pain: Yes HEART Score for Chest Pain: HEART Score for Chest Pain Response (Comments) Value History Slighlty/Non-Suspicious 0 ECG Normal 0 Age < 45 0 Risk Factors No Risk Factors 0 Total 0 Current Medications: Current Medications Medications (Trade) Dose Ordered Sig/[facility] Start Time Stop Time Status Last Admin Dose Admin Acetaminophen (Tylenol) 1,000 mg 1X ONCE 04/02/21 00:00 04/02/21 00:01 UNV Allergies: Allergies: Allergies Coded Allergies Type Severity Reaction Last Updated Verified No Known Medication Allergies Allergy Unknown 08/24/17 Yes lactose Adverse Reaction Intermediate diarrhea-reports lactose intolerance. 08/24/17 Yes Physical Exam: PE: Constitutional: No acute distress, non-toxic appearance. HENT: Atraumatic, bilateral external ears normal, nose normal. Eyes: PERRLA, EOMI, conjunctiva normal, no discharge. Neck: Normal range of motion, supple, no stridor. Cardiovascular: Heart rate regular rhythm. 2+ radial pulses Lungs & Thorax: No respiratory distress, symmetrical expansion. Bilateral breath sounds clear to auscultation Abdomen: Soft, no tenderness Skin: Warm, dry. Extremities: No tenderness, no cyanosis, ROM intact, no edema. Neurologic: Alert and oriented X 3, normal motor function, normal sensory function, no focal deficits noted. Non ataxic gait. GCS 15. Psychologic: Affect normal, judgment normal, mood normal. Current Patient Data: Labs: Laboratory Tests Test 04/02/21 00:25 SARS-CoV-2 Antigen (Rapid) Negative (NEGATIVE) Vital Signs: Vital Signs Date Time Temp Pulse Resp B/P (MAP) Pulse Ox O2 Delivery O2 Flow Rate FiO2 04/01/21 23:45 98.1 82 18 110/81 (109) 98 Room Air 98.1 EKG: EKG: Normal sinus rhythm, no ST-T wave changes, no ectopic beats, normal axis, normal WA, QRS, and QTc intervals. Impression: Normal EKG. interpreted by Mo harris D.O. Radiology/Procedures: Radiology/Procedures: No airspace disease, infiltrates or consolidations, lung sheridan clear. No pneumothorax or pleural effusion. Cardiac silhouette within normal limits. No widening of mediastinum. No obvious free air seen. Impression: normal CXR. Interpreted by Mo harris D.O. Course & Med Decision Making: Course & Med Decision Making Patient with normal vital signs, appears well clinically, objective work-up with an EKG and chest x-ray and Covid swab are all unremarkable. She was advised self quarantine until her confirmatory test returns. She was discharged in stable condition Departure Departure Impression: Primary Impression: Chest pain Disposition: HOME / SELF CARE / HOMELESS Condition: STABLE Referrals: MASSIEL SPENCER MD (PCP) Patient Instructions: Chest Pain (Nonspecific), [id number] Additional Instructions: You were seen in the emergency department for chest pain. Your exam and testing did not show any acute abnormality that warranted admission today but does not rule out underlying cardiovascular disease. You need to follow up with your primary doctor and/or cardiology for further evaluation. Return to the Emergency Department immediately, day or night, if you have worsening or continued chest pain, shortness of breath, nausea, sweating during chest pain, trouble breathing, chest pain with exertion (climbing stairs or walking for example), leg swelling or for any other concerns. MO GODFREY DO Apr 02, 2021 00:03
[2021-04-02 01:21] VITALS: BP 118/69
--- NOTE | 2021-04-02 04:50 | RAD ---
Study: XR CHEST 1V Indication: Shortness of breath. Comparison: None. Findings: Hazy attenuation at the lateral aspect of both lower lungs favored summation artifact from overlying breast tissue. No lobar consolidation, pleural effusion or pneumothorax. The cardiomediastinal silhou ette and aleyda are within normal limits. Impression: No acute radiographic abnormality of the chest. Electronically signed by: MABLE NUNN MD (04/02/2021 4:48 AM) [facility]
--- NOTE | 2021-04-04 10:30 | NUR ---
IP: Informed pt of negative covid test. Pt verbalized understanding.
== END 2021-04-02 02:11 | disposition home or self-care (01) ==
LOC: ER 23:42
DX: R07.9 Chest pain, unspecified (principal); R06.02 Shortness of breath; R53.83 Other fatigue; F17.200 Nicotine dependence, unspecified, uncomplicated; Z20.822 Contact with and (suspected) exposure to COVID-19; Z86.2 Personal history of diseases of the blood and blood-forming organs and certain disorders involving the immune mechanism; Z91.011 Allergy to milk products
CPT/HCPCS: 71045; 87426; 99284; U0003; U0005

== ENCOUNTER → 2021-05-19 | Outpatient (CLI) | payer SELFPAY | LOC: SPEC 13:48 | PROVIDERS: ATTEND Obstetrics & Gynecology | DX: R10.2 Pelvic and perineal pain (principal) | CPT/HCPCS: Q0111 ==

== ENCOUNTER 2021-10-16 15:51 | Emergency (ER) | payer SELFPAY ==
[~2021-10-16] VITALS: Ht 170.2 cm; Wt 113.0 kg
[2021-10-16 16:14] VITALS: BP 142/80
[2021-10-16] MEDS ORDERED: LIDOCAINE 1%/EPI 1:100,000 20 ML VIAL. INJ ONE (16:30)
[2021-10-16] MEDS ORDERED: SULF1TAB24 PO (16:36)
--- NOTE | 2021-10-16 16:37 | PHYS DOC ---
Past Medical History Past Medical History: Anemia, Other Additional Past Medical Histor: ovarian cyst Past Surgical History: Other Additional Past Surgical Histo: R)inguinal hernia. Smoking Status: Current Every Day Smoker Alcohol Use: Occasionally Drug Use: Marijuana General Adult EDM: Chief Complaint: SKIN RASH/ABSCESS HPI: HPI: Patient is a 36 year old female who presents with left upper groin abscess that is approximately nickel size with redness x 5 days. She states it started out as a pimple and then has grown since then. States that it is a tender type pain. Patient states she has had these before. She denies fever, abdominal pain, nausea, vomiting, diarrhea, headache, chills, vaginal discharge, urinary symptoms. Rates her pain a 7 out of 10 at this time. Review of Systems: Review of Systems: Constitutional: Denies fever or chills. [] Eyes: Denies change in visual acuity. [] HENT: Denies nasal congestion or sore throat. [] Respiratory: Denies cough or shortness of breath. [] Cardiovascular: Denies chest pain or edema. [] GI: Denies abdominal pain, nausea, vomiting, bloody stools or diarrhea. [] : Denies dysuria. [] Musculoskeletal: Denies back pain or joint pain. [] Integument: Denies rash. + Left upper groin abscess [] Neurologic: Denies headache, focal weakness or sensory changes. [] Endocrine: Denies polyuria or polydipsia. [] Lymphatic: Denies swollen glands. [] Psychiatric: Denies depression or anxiety. [] Heart Score: C/O Chest Pain: No Current Medications: Current Medications Medications (Trade) Dose Ordered Sig/Rut Start Time Stop Time Status Last Admin Dose Admin Lidocaine/ Epinephrine (LIDOCAINE 1%-EPI 1:100,000 Multi-Dose) 20 ml 1X ONCE 10/16/21 16:30 10/16/21 16:31 10/16/21 16:28 20 ML Allergies: Allergies: Allergies Coded Allergies Type Severity Reaction Last Updated Verified No Known Medication Allergies Allergy Unknown 08/24/17 Yes lactose Adverse Reaction Intermediate diarrhea-reports lactose intolerance. 08/24/17 Yes Physical Exam: PE: Constitutional: Well developed, well nourished, no acute distress, non-toxic appearance. [] HENT: Normocephalic, atraumatic, bilateral external ears normal, oropharynx moist, no oral exudates, nose normal. [] Eyes: PERRLA, EOMI, conjunctiva normal, no discharge. [] Neck: Normal range of motion, no tenderness, supple, no stridor. [] Cardiovascular:Heart rate regular rhythm, no murmur [] Lungs & Thorax: Bilateral breath sounds clear to auscultation [] Abdomen: Bowel sounds normal, soft, no tenderness, no masses, no pulsatile masses. [] Skin: Warm, dry, no erythema, no rash. Left upper groin abscess that is approximately nickel sized with redness. [] Back: No tenderness, no CVA tenderness. [] Extremities: No tenderness, no cyanosis, no clubbing, ROM intact, no edema. [] Neurologic: Alert and oriented X 3, normal motor function, normal sensory function, no focal deficits noted. [] Psychologic: Affect normal, judgement normal, mood normal. [] Current Patient Data: Vital Signs: Vital Signs Date Time Temp Pulse Resp B/P (MAP) Pulse Ox O2 Delivery O2 Flow Rate FiO2 10/16/21 16:14 98.4 84 22 142/80 (100) 99 Room Air 98.4 EKG: EKG: [] Radiology/Procedures: Radiology/Procedures: [] Course & Med Decision Making: Course & Med Decision Making Pertinent Labs and Imaging studies reviewed. (See chart for details) See HPI. Alert and oriented x4. Ambulatory steady gait. Skin pink warm and dry. Patient has a upper groin abscess that is nickel sized and reddened. It is soft and tender. I&D Location: Left upper groin 1cm abscess Anesthesia: Lidocaine with epi Scalpel size: #11 Skin: Reddened Drainage: small amount of white foul smelling drainage Packing: None Patient tolerated the procedure well with no complications. The area was prepped and draped in usual sterile fashion. Area was cleaned with chloehexidine prior to procedure. Return for signs and symptoms of infection education given. Patient to return in 48 hours for wound recheck. [] Dragon Disclaimer: Dragon Disclaimer: This electronic medical record was generated, in whole or in part, using a voice recognition dictation system. Departure Departure Impression: Primary Impression: Abscess Disposition: HOME / SELF CARE / HOMELESS Condition: STABLE Referrals: NO PCP (PCP) Patient Instructions: Abscess, Abscess, Care After, Sitz Bath Additional Instructions: Follow-up with primary care provider soon as possible. You can also return here in 48 hours for wound recheck. Take antibiotic as prescribed and with food. Soak in hot water baths or use a warm compress to the area to help with drainage. Take ibuprofen or Tylenol for your pain. Scripts Sulfamethoxazole/Trimethoprim (BACTRIM DS TABLET) 1 Each Tablet 1 TAB PO BID for 7 Days, #14 TAB 0 Refills Prov: MANOLO FERRELL APRN 10/16/21 MANOLO FERRELL APRN Oct 16, 2021 16:37
== END 2021-10-16 17:13 | disposition home or self-care (01) ==
LOC: ER 15:51
DX: L02.214 Cutaneous abscess of groin (principal); F17.200 Nicotine dependence, unspecified, uncomplicated; Z86.2 Personal history of diseases of the blood and blood-forming organs and certain disorders involving the immune mechanism; Z91.011 Allergy to milk products
CPT/HCPCS: 10060; 99283; J3490

== ENCOUNTER 2021-12-05 03:03 | Emergency (ER) | payer SELFPAY ==
[~2021-12-05] VITALS: Ht 170.2 cm; Wt 113.6 kg
[2021-12-05 04:22] LABS: BASO % 1 % (0-3); EOS # 0.1 x10^3/uL (0.0-0.7); EOS % 2 % (0-3); HEMATOCRIT 39.2 % (36.0-47.0); HEMOGLOBIN 12.8 g/dL (12.0-15.5); LYMPH # 3.4 x10^3/uL (1.0-4.8); LYMPH % 47 % (24-48); MEAN CORPUSCULAR HEMOGLOBIN 26 pg (25-35); MEAN CORPUSCULAR HGB CONC 33 g/dL (31-37); MEAN CORPUSCULAR VOLUME 81 fL (79-100); MONO # 0.5 x10^3/uL (0.0-1.1); MONO % 8 % (0-9); NEUT % 43 % (31-73); PLATELET COUNT 346 x10^3/uL (140-400); RED BLOOD COUNT 4.84 x10^6/uL (3.50-5.40); WHITE BLOOD COUNT 7.1 x10^3/uL (4.0-11.0)
--- NOTE | 2021-12-05 04:25 | RAD ---
EXAM: AP View of the chest DATE: 12/05/2021 3:55 AM INDICATION: Reason: chest pain / Spl. Instructions: / History: COMPARISON: No Prior FINDINGS: The heart is not enlarged. Mediastinal and hilar contours are normal. No focal parenchymal airspace opacity. No pleural effusion or pneumothorax. IMPRESSION: 1. No radiographic evidence for acute cardiopulmonary process. Electronically signed by: Philip Vasquez MD (12/05/2021 4:22 AM) CHRISTINE
[2021-12-05 04:29] LABS: PREG TEST PT QUAL NEGATIVE (NEG)
[2021-12-05] MEDS ORDERED: ASPIRIN CHEWABLE 81 MG TABLET. PO ONE (04:30)
[2021-12-05] MEDS ORDERED: IV NORMAL SALINE 1000ML BAG 1,000 ML IV ONE (04:30)
[2021-12-05 04:38] LABS: CALCIUM 9.9 mg/dL (8.5-10.1); GFR 76.8; POTASSIUM 3.9 mmol/L (3.5-5.1)
[2021-12-05 04:42] LABS: ALBUMIN 3.6 g/dL (3.4-5.0); ALBUMIN/GLOBULIN RATIO 0.9 (1.0-1.7); TOTAL BILIRUBIN 0.2 mg/dL (0.2-1.0); TOTAL PROTEIN 7.5 g/dL (6.4-8.2)
[2021-12-05 04:46] LABS: PARTIAL THROMBOPLASTIN TIME 31 SEC (24-38); PROTHROMBIN TIME PATIENT 12.2 SEC (11.7-14.0)
--- NOTE | 2021-12-05 04:50 | EKG ---
[facility] [address] [place] [address] Test Date: 2021-12-05 Test Time: 06:24:18 Pat Name: HELLEN ALFARO Department: Room: Gender: F Rn Visiting: : 1985 Requested By: ZAY VERA Order Number: [id number] Reading MD: Sedrick Carr Measurements Intervals [place] Rate: 102 P: 59 CO: 170 QRS: 5 QRSD: 84 T: 24 QT: 330 QTc: 434 Interpretive Statements SINUS RHYTHM POSSIBLE LEFT ATRIAL ABNORMALITY INCOMPLETE RIGHT BUNDLE BRANCH BLOCK Electronically Signed On 12-08-2021 13:44:26 CDT by Sedrick Carr
[2021-12-05 04:53] LABS: D-DIMER < 0.27 ug/mlFEU (0.00-0.50)
[2021-12-05] MEDS ORDERED: KETOROLAC 15 MG/ML VIAL. IVP ONE (05:30)
[2021-12-05 05:57] VITALS: BP 142/82
[2021-12-05] MEDS ORDERED: ACETAMINOPHEN 500 MG TABLET PO ONE (06:30)
--- NOTE | 2021-12-05 06:48 | PHYS DOC ---
Past Medical History Past Medical History: Anemia, Other Additional Past Medical Histor: ovarian cyst Past Surgical History: Other Additional Past Surgical Histo: R)inguinal hernia. Smoking Status: Current Every Day Smoker Alcohol Use: Occasionally Drug Use: Marijuana Adult General Chief Complaint Chief Complaint: SHORTNESS OF BREATH HPI HPI The patient is a 36-year-old female with a history of obesity, hypertension and tobacco use (quit about a month ago). Ms. Thomas presents for evaluation of chest pain and shortness of breath. States that she has had chronic right-sided sharp stabbing chest discomfort for 1 full year, every day, all the time. Went to her doctor a couple of days ago for evaluation of her chronic chest discomfort. Her doctor started her on an antihypertensive medication; she believes it may be hydrochlorothiazide although she is not sure. She took the first dose before she went to bed overnight. She noticed that, overnight, her chronic chest pain got worse. She also felt as though she was having difficulty taking a good deep breath. She began feeling very anxious. After a couple of hours of feeling chest discomfort and shortness of breath, she elected emergency department evaluation. Upon initial evaluation here in the emergency department patient is alert and oriented x4, pleasantly and appropriately interactive, ambulatory with a narrow, steady gait to her ED bed and has completely appropriate vital signs including oxygenation. Triage EKG is nonischemic. Patient denies associated fevers, nausea or vomiting, cold sweats or chills, upper respiratory congestion/rhinorrhea, cough, sore throat, abdominal pain, flank pain, back pain, dysuria, hematuria, polyuria or oliguria, changes in bowel habits, pain or swelling to arms or legs. Review of Systems Review of Systems A 12 point review of systems was completed and was negative except where noted in HPI above. Current Medications Current Medications Current Medications Medications (Trade) Dose Ordered Sig/Rut Start Time Stop Time Status Last Admin Dose Admin Acetaminophen (Tylenol) 1,000 mg 1X ONCE 12/05/21 06:30 12/05/21 06:31 DC 12/05/21 06:14 1,000 MG Aspirin (Aspirin Chewable) 324 mg 1X ONCE 12/05/21 04:30 12/05/21 04:31 DC 12/05/21 04:20 324 MG Ketorolac Tromethamine (Toradol 15mg Vial) 15 mg 1X ONCE 12/05/21 05:30 12/05/21 05:31 DC Sodium Chloride 1,000 ml @ 1,000 mls/hr 1X ONCE 12/05/21 04:30 12/05/21 05:29 DC 12/05/21 04:20 1,000 MLS/HR Allergies Allergies Allergies Coded Allergies Type Severity Reaction Last Updated Verified No Known Medication Allergies Allergy Unknown 08/24/17 Yes lactose Adverse Reaction Intermediate diarrhea-reports lactose intolerance. 08/24/17 Yes Physical Exam Physical Exam 36-year-old female appearing nontoxic and in no acute distress. Head is normocephalic and atraumatic. Neck is supple and nontender. Oropharynx is moist. Lungs are clear to auscultation at all stations. There is a normal S1 and S2 without rubs or gallops capillary refill is appropriate, less than 2 seconds globally. Abdomen is soft, nontender and nondistended. No pulsatile irreducible mass. Skin is warm and dry without cyanosis, clubbing or edema. Psychiatrically, patient demonstrates appropriate mood and affect and is alert. Evaluation of the extremities reveals BUEs and BLEs neurovascularly intact distally with strength 5/5, sensation intact light touch in all nerve dis tributions, radial, DP and PT pulses 2+ and equal bilaterally, capillary refill 2 seconds, hands and feet warm and well-perfused. No dependent peripheral edema distally. No calf tenderness or swelling bilaterally. Homans test is negative bilaterally. Current Patient Data Lab Values Laboratory Tests Test 12/05/21 03:40 White Blood Count 7.1 x10^3/uL (4.0-11.0) Red Blood Count 4.84 x10^6/uL (3.50-5.40) Hemoglobin 12.8 g/dL (12.0-15.5) Hematocrit 39.2 % (36.0-47.0) Mean Corpuscular Volume 81 fL (79-100) Mean Corpuscular Hemoglobin 26 pg (25-35) Mean Corpuscular Hemoglobin Concent 33 g/dL (31-37) Red Cell Distribution Width 16.0 % (11.5-14.5) H Platelet Count 346 x10^3/uL (140-400) Neutrophils (%) (Auto) 43 % (31-73) Lymphocytes (%) (Auto) 47 % (24-48) Monocytes (%) (Auto) 8 % (0-9) Eosinophils (%) (Auto) 2 % (0-3) Basophils (%) (Auto) 1 % (0-3) Neutrophils # (Auto) 3.0 x10^3/uL (1.8-7.7) Lymphocytes # (Auto) 3.4 x10^3/uL (1.0-4.8) Monocytes # (Auto) 0.5 x10^3/uL (0.0-1.1) Eosinophils # (Auto) 0.1 x10^3/uL (0.0-0.7) Basophils # (Auto) 0.0 x10^3/uL (0.0-0.2) Prothrombin Time 12.2 SEC (11.7-14.0) Prothrombin Time INR 0.9 (0.8-1.1) Activated Partial Thromboplast Time 31 SEC (24-38) D-Dimer (Charissa) < 0.27 ug/mlFEU Sodium Level 139 mmol/L (136-145) Potassium Level 3.9 mmol/L (3.5-5.1) Chloride Level 105 mmol/L (98-107) Carbon Dioxide Level 22 mmol/L (21-32) Anion Gap 12 (6-14) Blood Urea Nitrogen 8 mg/dL (7-20) Creatinine 1.0 mg/dL (0.6-1.0) Estimated GFR (Cockcroft-Gault) 76.8 BUN/Creatinine Ratio 8 (6-20) Glucose Level 106 mg/dL (70-99) H Calcium Level 9.9 mg/dL (8.5-10.1) Total Bilirubin 0.2 mg/dL (0.2-1.0) Aspartate Amino Transferase (AST) 13 U/L (15-37) L Alanine Aminotransferase (ALT) 15 U/L (14-59) Alkaline Phosphatase 72 U/L (46-116) Troponin I High Sensitivity 5 ng/L (4-50) QW-Qza-Q-Type Natriuretic Peptide 104 pg/mL (0-124) Total Protein 7.5 g/dL (6.4-8.2) Albumin 3.6 g/dL (3.4-5.0) Albumin/Globulin Ratio 0.9 (1.0-1.7) L Serum Test, Qualitative Negative (NEG) Laboratory Tests 12/05/21 03:40 Laboratory Tests 12/05/21 03:40 EKG EKG Sinus rhythm, rate 102, no acute ST elevation or depression, T wave inversion lead III, nonspecific, MA 170, QRS 84, QTc 434, EP interpretation. Nonischemic tracing, intervals appropriate. Radiology/Procedures Radiology/Procedures EXAM: AP View of the chest DATE: 12/05/2021 3:55 AM INDICATION: Reason: chest pain / Spl. Instructions: / History: COMPARISON: No Prior FINDINGS: The heart is not enlarged. Mediastinal and hilar contours are normal. No focal parenchymal airspace opacity. No pleural effusion or pneumothorax. IMPRESSION: 1. No radiographic evidence for acute cardiopulmonary process. Electronically signed by: Philip Barnard MD (12/05/2021 4:22 AM) [facility] DICTATED and SIGNED BY: PHILIP BARNARD MD DATE: 12/05/21421 Course & Med Decision Making Course & Med Decision Making 36-year-old female presenting for subjective but not objective shortness of breath and an acute worsening of chronic chest discomfort with no new features. HEART score low risk at 1 (points for risk factors only). Wells low risk for PE and D-dimer is negative. Labs, EKG and chest x-ray are unremarkable. Delta troponin is negative. Patient resting comfortably in no acute distress on serial reassessments. Feels reassured. Chest pain is much better and shortness of breath is gone. Will direct her to follow-up very closely with her primary doctor in the next couple of days. We will have her hold off on taking the blood pressure medication which she took right before symptoms worsened overnight; she is to discuss next steps in blood pressure management with her doctor when she sees him. Will refer to cardiology for further evaluation of her chronic chest pain. She understands that if she feels worse instead of better or develops other new symptoms of concern that she should return the emergency department immediately for reevaluation. All questions were answered. Dragon Disclaimer Dragon Disclaimer This electronic medical record was generated, in whole or in part, using a voice recognition dictation system. Departure Departure Impression: Primary Impression: Other chest pain Disposition: HOME / SELF CARE / HOMELESS Condition: IMPROVED Referrals: LAWRENCE LASSITER MD Patient Instructions: Chest Pain (Nonspecific) Additional Instructions: Follow-up very closely with your primary care doctor in the office in the next 1 to 2 days for reevaluation of your symptoms and a discussion of next best steps in care. We are also providing referral information for cardiology (the heart doctors); I would like you to see the heart doctor for further evaluation of the chest pain you have been experiencing over the last year. Please call to make an appointment to be seen and let the tutoring clinician know that this is an ER follow-up appointment and you should be worked in as soon as possible. Drink plenty of fluids and get plenty of rest. I recommend you discontinue taking the blood pressure medication you were just prescribed as it may have caused some of the symptoms you experienced overnight. Recommend you discuss next steps in blood pressure management with your primary doctor when you see him or her in the next couple of days. Return to the emergency department right away for worsening symptoms of any kind or with any other new symptoms of concern. ZAY VERA MD Dec 05, 2021 06:48
== END 2021-12-05 07:10 | disposition home or self-care (01) ==
LOC: ER 03:03
DX: R07.89 Other chest pain (principal); R06.02 Shortness of breath; I10 Essential (primary) hypertension; Z72.0 Tobacco use; Z91.011 Allergy to milk products
CPT/HCPCS: 36415; 71045; 80053; 83880; 84484; 84703; 85025; 85379; 85610; 85730; 93005; 96361; 96374; 99285; J1885; J7030; 81025